=== PATIENT | male | born 1985 | race Caucasian/White ===

== ENCOUNTER 2016-08-13 00:51 | Emergency (ER) | payer SELFPAY | END 2016-08-13 02:28 | disposition home or self-care (01) | LOC: ER1 00:51 | DX: F31.9 Bipolar disorder, unspecified (principal); K58.0 Irritable bowel syndrome with diarrhea; Z76.0 Encounter for issue of repeat prescription; Z88.1 Allergy status to other antibiotic agents; F17.210 Nicotine dependence, cigarettes, uncomplicated | CPT/HCPCS: 99283 ==